=== PATIENT | female | born 1990 | race Caucasian/White ===

== ENCOUNTER → 2022-11-20 | Day surgery (SDC) | payer OTHER ==
[~2022-11-20] MED LIST: ACETAMINOPHEN 500 MG TABLET (FP) PO PRN; DEXAMETHASONE SOD PHOSPHATE 10 MG/1 ML VIAL ONE; LIDOCAINE HCL/PF 1% SDV 5ML VIAL ONE
== END | disposition home or self-care (01) ==
LOC: JASU-SURG 04:13
PROVIDERS: ATTEND Pain Medicine Pain Medicine
PROC: 3E033GC Introduction of Other Therapeutic Substance into Peripheral Vein, Percutaneous Approach (ICD-10-PCS; principal; 2022-11-20)
DX: Z53.8 Procedure and treatment not carried out for other reasons (principal)
CPT/HCPCS: J1100

== ENCOUNTER 2023-05-03 04:11 | Day surgery (SDC) | payer OTHER ==
[2023-05-02 11:42] VITALS: BMI 24.2
[~2023-05-03 04:11] MED LIST changes: -ACETAMINOPHEN 500 MG TABLET (FP) PO PRN; +DEXAMETHASONE SOD PHOSPHATE 10 MG/1 ML VIAL IVPUSH ONE; -DEXAMETHASONE SOD PHOSPHATE 10 MG/1 ML VIAL ONE; +IOHEXOL 180 MG/1 ML ML IJ ONE; +LIDOCAINE 1% P/F 10 MG/ML VIAL INF ONE; -LIDOCAINE HCL/PF 1% SDV 5ML VIAL ONE
[2023-05-03] MEDS ORDERED: LIDOCAINE HCL/PF 1% SDV 5ML VIAL ONE ×2 (07:49→11:59)
[2023-05-03] MEDS ORDERED: DEXAMETHASONE SOD PHOSPHATE 10 MG/1 ML VIAL ONE ×2 (07:50→11:59)
[2023-05-03 11:01] VITALS: RESP 18
[2023-05-03] MEDS ORDERED: BUPIVACAINE HCL/PF 0.25% (2.5MG/ML) 10 ML VIAL ONE (11:59)
[2023-05-03 13:32] VITALS: BP 122/80; PULSE 72; TEMP 97.6
== END 2023-05-03 13:20 | disposition home or self-care (01) ==
LOC: JASU-SURG 04:11
PROVIDERS: ATTEND Pain Medicine Pain Medicine
PROC: 3E0R3BZ Introduction of Anesthetic Agent into Spinal Canal, Percutaneous Approach (ICD-10-PCS; 2023-05-03)
PROC: 3E0R33Z Introduction of Anti-inflammatory into Spinal Canal, Percutaneous Approach (ICD-10-PCS; principal; 2023-05-03 12:45)
DX: M54.16 Radiculopathy, lumbar region (principal)
CPT/HCPCS: 76000-TC-FY; 81025; J1100